=== PATIENT | male | born 1975 | race African-American/Black ===

== ENCOUNTER 2019-11-08 13:01 | Emergency (ER) | payer SELFPAY ==
[~2019-11-08] VITALS: Ht 182.9 cm; Wt 109.7 kg
[2019-11-08 13:09] VITALS: BP 131/95
[2019-11-08] MEDS ORDERED: DEXAMETHASONE 4 MG TABLET ONE (13:42)
[2019-11-08] MEDS ORDERED: HYDROcodone/APAP 5/325 TABLET ONE (13:43)
[2019-11-08] MEDS ORDERED: DEXAMETHASONE 4 MG TABLET PO ONE (14:00)
[2019-11-08] MEDS ORDERED: HYDROcodone/APAP 5/325 TABLET PO ONE (14:00)
== END 2019-11-08 14:32 | disposition home or self-care (01) ==
LOC: ED 13:28
DX: J02.0 Streptococcal pharyngitis (principal); F17.200 Nicotine dependence, unspecified, uncomplicated
CPT/HCPCS: 87081; 99283

== ENCOUNTER 2020-09-24 09:50 | Emergency (ER) | payer OTHER ==
[~2020-09-24] VITALS: Ht 182.9 cm; Wt 110.0 kg
[2020-09-24] MEDS ORDERED: DIPH,PERTUSS(ACELL),TET VAC/PF 0.5 ML IM-VACC ONE ×2 (10:20→10:30)
[2020-09-24 10:43] VITALS: BP 121/88
== END 2020-09-24 10:43 | disposition home or self-care (01) ==
LOC: ED 10:37
DX: L20.9 Atopic dermatitis, unspecified (principal); L73.9 Follicular disorder, unspecified; F17.210 Nicotine dependence, cigarettes, uncomplicated
CPT/HCPCS: 90471; 90715